=== PATIENT | male | born 1970 | race Hispanic/Latino ===

== ENCOUNTER 2018-02-01 19:56 | Emergency (ER) | payer OTHER ==
[~2018-02-01 19:56] MED LIST: CYCLOBENZAPRINE10 M1 PO; IBUPROFEN600 M1 PO; PERCOCET 5-3251 EACH PO
--- NOTE | 2018-02-01 20:32 | RADIOLOGY REPORT ---
EXAMINATION: CHEST 2 VIEWS CLINICAL INFORMATION: Respiratory distress. Wheezing. COMPARISON: 12/27/2017. TECHNIQUE: PA and lateral views of the chest were obtained. FINDINGS: The cardiac silhouette is not enlarged. The mediastinal and hilar contours are unremarkable. There are neither pleural effusions nor pneumothoraces. There are no consolidations. The lungs are mildly hyperinflated. The osseous structures are stable. IMPRESSION: No evidence for acute disease. Mild lung hyperinflation.
[2018-02-01 21:05] LABS: ABSOLUTE BASOPHIL COUNT 0 /CUMM (0.0-0.2); ABSOLUTE EOSINOPHIL COUNT 0.2 /CUMM (0.0-0.7); ABSOLUTE GRANULOCYTE CT 5.4 /CUMM (1.4-6.5); ABSOLUTE LYMPH COUNT 2.4 /CUMM (1.2-3.4); ABSOLUTE MONOCYTE COUNT 0.7 /CUMM (0.10-0.60); BASOPHIL % 0.2 % (0.0-2.0); EOSINOPHIL % 1.8 % (0-5); GRANULOCYTE % 61.8 % (42.2-75.2); HEMATOCRIT 40.9 % (42-52); MEAN CORPUSCULAR HGB 31.4 PG (27.0-31.0); MEAN CORPUSCULAR HGB CONC 34.3 G/DL (33.0-37.0); MEAN CORPUSCULAR VOLUME 91.3 FL (80.0-94.0); PLATELET COUNT 263 /CUMM (130-400); RBC DISTRIBUTION WIDTH 12.3 % (11.5-14.5); RED BLOOD CELL CT 4.48 /CUMM (4.70-6.10); WHITE BLOOD CELL COUNT 8.7 /CUMM (4.8-10.8)
[2018-02-01] MEDS ORDERED: PROAIR HFA8.5 GM INH (22:25)
[2018-02-01] MEDS ORDERED: NICOTINE PATCH1 EAC2 TOP (22:25)
[2018-02-01] MEDS ORDERED: ZITHROMAX250 M2 PO (22:25)
[2018-02-01] MEDS ORDERED: PREDNISONE20 M1 PO (22:25)
--- NOTE | 2018-02-01 22:26 | ED GENERAL ADULT ---
History of Present Illness General Chief Complaint: Dyspnea (COPD, CHF, Other) Stated Complaint: DIFF BREATHING Source: patient, old records Exam Limitations: no limitations Vital Signs & Intake/Output Vital Signs & Intake/Output Vital Signs Date Time Temp Pulse Resp B/P B/P Pulse O2 O2 Flow FiO2 Mean Ox Delivery Rate 02/01 2153 97 Room Air 02/01 2005 96.5 80 18 98 Room Air Allergies Coded Allergies: NO KNOWN ALLERGIES (06/18/16) Reconcile Medications Albuterol Sulfate (Proair Hfa) 90 MCG HFA.AER.AD 2-4 INH INH Q6P PRN wheezing Azithromycin (Zithromax) 250 MG TABLET 1 DP PO AD COPD/BRONCHITIS 2 the first day followed by 1 for days 2-5 Nicotine (Nicotine Patch) 14 MG/24 HOUR PATCH.TD24 1 PAT TOP DAILY smoking cessation Prednisone 20 MG TABLET 3 TAB PO DAILY bronchitis Triage Note: 47M REPORTS DIFF BREATHING FOR 3 DAYS LIKE HIS LUNGS ARE TIGHT AND IT FEELS TIGHT IN THORACIC BACK. O2 SAT 98%. HX ASTHMA CHILD. WHEEZES NOTED TO BASES, L>R. DENIES COUGH, BUT FEELS URGE TO GET IT OUT. ENDORSES NASAL CONGESTION AT NIGHT. +SMOKER 1/2PPD. Triage Nurses Notes Reviewed? yes HPI: Pt is a 47 y/o M PMHx asthma presenting with dyspnea x 4 days. Pt states that he has had a progressive onset of cough with associated shortness of breath. Since onset, dyspnea has been progressing and feels to him like "tightness ", similar to prior asthma exacerbations. Pt describes a productive cough as well as an associated tightness between his shoulder blades. He denies any chest pain pt admits to smoking 1/2 of a ppd. Pt states that dyspnea is often worst at night. Pt admits to using a friend's albuterol with some significant relief. Pt denies palpitations, fevers, chills, diaphoresis, recent travel, abdominal pain. He has had no recent travel, trauma, or other illness. No history of blood clots, no leg swelling. (Esteban VASQUEZ,Brian) Past History Travel History Traveled to [place] past 21 day No Medical History Any Pertinent Medical History? see below for history Neurological: NONE EENT: NONE Cardiovascular: NONE Respiratory: asthma Gastrointestinal: NONE Hepatic: NONE Renal: NONE Musculoskeletal: NONE Psychiatric: NONE Endocrine: NONE Blood Disorders: NONE Cancer(s): NONE LOCK FITTER/Reproductive: NONE Surgical History Surgical History: none Psychosocial History What is your primary language Iraqi Tobacco Use: Current Daily Use Daily Tobacco Use Amount/Type: => 5 Cigarettes daily Family History Hx Contributory? No (Brian Orellana MD) Review of Systems Review of Systems Constitutional: Reports: no symptoms. EENTM: Reports: no symptoms. Respiratory: Reports: cough, short of breath, sputum production, wheezing. Cardiovascular: Reports: no symptoms. GI: Reports: no symptoms. Genitourinary: Reports: no symptoms. Musculoskeletal: Reports: no symptoms. Skin: Reports: no symptoms. Neurological/Psychological: Reports: no symptoms. Hematologic/Endocrine: Reports: no symptoms. Immunologic/Allergic: Reports: no symptoms. (Brian Orellana MD) Physical Exam Physical Exam General Appearance: well developed/nourished, no apparent distress, alert, comfortable Comments: Well-appearing middle-aged male, no acute distress. Trachea midline, no JVD. Patient has diffuse expiratory wheezes with some faint scattered crackles. He speaks in full sentences without difficulty. Prolonged expiratory phase with no obvious increased work of breathing. No murmurs, gallops, rubs. Regular rate and rhythm. No pedal edema. Intact distal pulses. Mucous membranes moist. HEENT exam benign. Patient neurologically intact and normal. He is able to walk the department without difficulty. Core Measures ACS in differential dx? Yes CVA/TIA Diagnosis: No Sepsis Present: No Sepsis Focused Exam Completed? No (Brian Orellana MD) Progress Differential Diagnoses I considered the following diagnoses in my evaluation of the patient: Clinically suspect bronchitis/reactive airway exacerbation in this patient with history of asthma and chronic smoking. Lower suspicion for pneumonia, however will address possibility with labs, chest film. Low suspicion for ACS given atypical presentation, and physical exam. Low suspicion also for CHF/pulmonary edema in this patient. Very low suspicion also for pulmonary embolism given lack of suggestive history, exam findings. PERC negative. Plan of Care: Orders Procedure Date/time Status TROPONIN LEVEL 02/01 2017 Complete COMPREHENSIVE METABOLIC PANEL 02/01 2017 Complete CBC WITHOUT DIFFERENTIAL 02/01 2017 Complete EKG 02/01 2017 Active Laboratory Tests 02/01/18 2043: Anion Gap 5, Estimated GFR > 60, BUN/Creatinine Ratio 16.3, Glucose 79, Calcium 9.0, Total Bilirubin 0.5, AST 24, ALT 26, Alkaline Phosphatase 63, Troponin I < 0.01, Total Protein 7.6, Albumin 4.1, Globulin 3.5, Albumin/Globulin Ratio 1.2, CBC w Diff NO MAN DIFF REQ, RBC 4.48 L, MCV 91.3, MCH 31.4 H, MCHC 34.3, RDW 12.3, MPV 7.0 L, Gran % 61.8, Lymphocytes % 27.9, Monocytes % 8.3, Eosinophils % 1.8, Basophils % 0.2, Absolute Granulocytes 5.4, Absolute Lymphocytes 2.4, Absolute Monocytes 0.7 H, Absolute Eosinophils 0.2, Absolute Basophils 0 Plan for basic labs, chest film, EKG, reassessment. Troponin negative, chest film is nonacute. Patient discharged home with treatment for bronchitis including Z-Js, albuterol MDI, and 5-day course of steroids. Patient also given nicotine patch for smoking cessation. Return precautions provided. Patient will follow up with his primary doctor. Initial ED EKG: no ST T wave changes (Brian Orlelana MD) Differential Diagnoses I considered the following diagnoses in my evaluation of the patient: (Roc Sanders DO) Departure Departure Time of Disposition: 2221 Disposition: HOME OR SELF CARE Condition: Stable Clinical Impression Primary Impression: Bronchitis Referrals: Lloyd Jonas (PCP/Family) Additional Instructions: Thank you for coming to [facility]. As we discussed, is very important that you follow-up with your primary doctor. Please take medications as prescribed and use the nicotine patch to help you quit smoking. Please return to the emergency department immediately if he develop any worsening shortness of breath or other concerning symptoms such as chest pain or fever or chills or sweats or nausea or vomiting. Departure Forms: Customer Survey General Discharge Information Prescriptions: Current Visit Scripts Azithromycin (Zithromax) 1 DP PO AD #6 TAB 2 the first day followed by 1 for days 2-5 Albuterol Sulfate (Proair Hfa) 2-4 INH INH Q6P PRN wheezing #1 INHAL Prednisone 3 TAB PO DAILY #15 TAB Nicotine (Nicotine Patch) 1 PAT TOP DAILY #28 PAT (Brian Orellana MD) Resident Co-Sign Statement Statement: ED Attending supervision documentation- [] I saw and evaluated the patient. I have also reviewed all the pertinent lab results and diagnostic results. I agree with the findings and the plan of care as documented in the Resident's documentation. [X] I have reviewed the ED Record and agree with the Resident's documentation. [] Additions or exceptions (if any) to the Resident's note and plan are summarized below: [] (Tommy BANGURA,Roc Srinivasan) Critical Care Note Critical Care Note Critical Care Time: non-applicable (Esteban VASQUEZ,Brian)
--- NOTE | 2018-02-01 22:27 | ED GENERAL ADULT ---
History of Present Illness General Chief Complaint: Dyspnea (COPD, CHF, Other) Stated Complaint: DIFF BREATHING Vital Signs & Intake/Output Vital Signs & Intake/Output Vital Signs Date Time Temp Pulse Resp B/P B/P Pulse O2 O2 Flow FiO2 Mean Ox Delivery Rate 02/01 2153 97 Room Air 02/01 2005 96.5 80 18 98 Room Air Allergies Coded Allergies: NO KNOWN ALLERGIES (06/18/16) Reconcile Medications Albuterol Sulfate (Proair Hfa) 90 MCG HFA.AER.AD 2-4 INH INH Q6P PRN wheezing Azithromycin (Zithromax) 250 MG TABLET 1 DP PO AD COPD/BRONCHITIS 2 the first day followed by 1 for days 2-5 Nicotine (Nicotine Patch) 14 MG/24 HOUR PATCH.TD24 1 PAT TOP DAILY smoking cessation Prednisone 20 MG TABLET 3 TAB PO DAILY bronchitis Progress Plan of Care: Orders Procedure Date/time Status TROPONIN LEVEL 02/01 2017 Complete COMPREHENSIVE METABOLIC PANEL 02/01 2017 Complete CBC WITHOUT DIFFERENTIAL 02/01 2017 Complete EKG 02/01 2017 Active Laboratory Tests 02/01/18 2043: Anion Gap 5, Estimated GFR > 60, BUN/Creatinine Ratio 16.3, Glucose 79, Calcium 9.0, Total Bilirubin 0.5, AST 24, ALT 26, Alkaline Phosphatase 63, Troponin I < 0.01, Total Protein 7.6, Albumin 4.1, Globulin 3.5, Albumin/Globulin Ratio 1.2, CBC w Diff NO MAN DIFF REQ, RBC 4.48 L, MCV 91.3, MCH 31.4 H, MCHC 34.3, RDW 12.3, MPV 7.0 L, Gran % 61.8, Lymphocytes % 27.9, Monocytes % 8.3, Eosinophils % 1.8, Basophils % 0.2, Absolute Granulocytes 5.4, Absolute Lymphocytes 2.4, Absolute Monocytes 0.7 H, Absolute Eosinophils 0.2, Absolute Basophils 0 Departure Departure Departure Forms: Customer Survey General Discharge Information Prescriptions: Current Visit Scripts Azithromycin (Zithromax) 1 DP PO AD #6 TAB 2 the first day followed by 1 for days 2-5 Albuterol Sulfate (Proair Hfa) 2-4 INH INH Q6P PRN wheezing #1 INHAL Prednisone 3 TAB PO DAILY #15 TAB Nicotine (Nicotine Patch) 1 PAT TOP DAILY #28 PAT CBC WITHOUT DIFFERENTIAL 02/01 2017 Complete EKG 02/01 2017 Active Laboratory Tests 02/01/182042: Anion Gap 5, Estimated GFR > 60, BUN/Creatinine Ratio 16.3, Glucose 79, Calcium 9.0, Total Bilirubin 0.5, AST 24, ALT 26, Alkaline Phosphatase 63, Troponin I < 0.01, Total Protein 7.6, Albumin 4.1, Globulin 3.5, Albumin/Globulin Ratio 1.2, CBC w Diff NO MAN DIFF REQ, RBC 4.48 L, MCV 91.3, MCH 31.4 H, MCHC 34.3, RDW 12.3, MPV 7.0 L, Gran % 61.8, Lymphocytes % 27.9, Monocytes % 8.3, Eosinophils % 1.8, Basophils % 0.2, Absolute Granulocytes 5.4, Absolute Lymphocytes 2.4, Absolute Monocytes 0.7 H, Absolute Eosinophils 0.2, Absolute Basophils 0 Departure Departure Condition: Stable Referrals: Lloyd Jonas (PCP/Family) Departure Forms: Customer Survey General Discharge Information Prescriptions: Current Visit Scripts No Known Home Medications
== END 2018-02-01 22:54 ==
LOC: ERH 19:56
PROVIDERS: Physician Assistant
DX: J40 Bronchitis, not specified as acute or chronic (principal); F17.210 Nicotine dependence, cigarettes, uncomplicated; R06.00 Dyspnea, unspecified; J45.909 Unspecified asthma, uncomplicated; R06.02 Shortness of breath
CPT/HCPCS: 71046; 93005; 93010